=== PATIENT | female | born 1980 | race Caucasian/White ===

== ENCOUNTER 2017-03-29 13:38 | Outpatient (CLI) | payer OTHER ==
[~2017-03-29] VITALS: Ht 162.6 cm; Wt 59.1 kg
[2017-03-29] MEDS ORDERED: LEVO750T25 PO (14:24)
[2017-03-29 14:25] VITALS: BP 131/86; PULSE 106; RESP 18; Ht 162.6 cm; Wt 59.1 kg
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
== END 2017-03-29 17:00 | disposition home or self-care (01) ==
LOC: DCC 13:38
PROVIDERS: ATTEND Internal Medicine
DX: L03.011 Cellulitis of right finger (principal); N28.9 Disorder of kidney and ureter, unspecified; S61.051A Open bite of right thumb without damage to nail, initial encounter